=== PATIENT | male | born 1980 | race Caucasian/White ===

== ENCOUNTER 2020-03-22 16:39 | Outpatient (CLI) | payer BC, SELFPAY ==
--- NOTE | ~2020-03-22 | XR_ITS ---
XR knee RT 2V 03/22/2020 17:11 Indication: Right knee pain Procedure: 2 views of the right knee Comparison: No prior studies for comparison. Findings: There is right total knee arthroplasty. There is replacement of the distal aspect of the fe mur. There is lucency surrounding the tibial component of the knee arthroplasty, suspicious for loose chris. There are surgical changes in the femoral region medially. 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 No acute fractures identified. Impression: 1: No acute fracture. 2: Right total knee arthroplasty with partial replacement of the distal femur. Periprosthetic lucency in the proximal tibia, suspicious for loosening. Reviewed, dictated and finalized at location A. RETTE FILTER INSPECTOR Impression: 1: No acute fracture. 2: Right total knee arthroplasty with partial replacement of the distal femur. Periprosthetic lucency in the proximal tibia, suspicious for loosening.
== END 2020-03-22 16:40 ==
PROVIDERS: Visit Provider Pain Medicine Interventional Pain Medicine
DX: M79.2 Neuralgia and neuritis, unspecified (principal); M25.561 Pain in right knee; C92 Myeloid leukemia; G89.4 Chronic pain syndrome; M79.604 Pain in right leg; Z79.891 Long term (current) use of opiate analgesic
CPT/HCPCS: 73560

== ENCOUNTER 2021-07-17 15:51 | Outpatient (CLI) | payer BC, SELFPAY ==
--- NOTE | ~2021-07-17 | XR_ITS ---
XR hip RT min 2V DATE: 07/17/2021 16:23 INDICATION: Right hip pain TECHNIQUE: AP and lateral views of right hip and femur COMPARISON: 03/2020 right knee FINDINGS: Distal femur prosthesis and right knee arthroplasty are again noted. No fracture or dislocation, avascular necrosis or bone destruction is noted at the right hip. IMPRESSION: Right distal femoral replacement and right knee arthroplasty Reviewed, dictated and finalized at location A.
--- NOTE | ~2021-07-17 | XR_ITS ---
EXAMINATION: XR lumbar spine 2-3V DATE: 07/17/2021 16:23 INDICATION: Lumbar radiculopathy TECHNIQUE: Anteroposterior and lateral views of the lumbar spine, and cone-down lateral view of the l umbosacral junction were obtained. COMPARISON: None. FINDINGS: There are 3 mm of retrolisthesis of L5 on S1. There is mild loss of intervertebral disc spa ce height at L5-S1. Bone alignment is otherwise normal. The vertebral body heights are maintained. 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 IMPRESSION: 1. Mild lumbar spondylosis at L5-S1. Reviewed, dictated and finalized at location F.
== END 2021-07-17 15:52 ==
DX: M47.26 Other spondylosis with radiculopathy, lumbar region (principal); M25.551 Pain in right hip; C92 Myeloid leukemia; G89.4 Chronic pain syndrome; M79.2 Neuralgia and neuritis, unspecified; M79.604 Pain in right leg; M79.606 Pain in leg, unspecified; Z79.891 Long term (current) use of opiate analgesic
CPT/HCPCS: 72100; 73502

== ENCOUNTER 2023-01-23 09:25 | Outpatient (CLI) | payer BC, SELFPAY ==
--- NOTE | ~2023-01-23 | XR_ITS ---
Left Knee Technique: AP and lateral views were obtained. Clinical History: Pain Findings: No fracture or dislocation is seen. Osseous alignment is anatomic. Joint spaces are preserv ed without degenerative or erosive change. Soft tissues are unremarkable. No joint effusion is seen. Impression: Unremarkable left knee radiographs. Reviewed, dictated and finalized at [facility]. RINARIAN ASSISTANT Impression: Unremarkable left knee radiographs.
--- NOTE | ~2023-01-23 | XR_ITS ---
Right Knee Technique: AP and lateral views were obtained. Clinical History: Pain Findings: No fracture or dislocation is seen. There is extensive knee arthroplasty hardware present, with replacement of the distal third/half of the right femur. Soft tissues are unremarkable. No joint effusion is seen. Impression: No acute abnormality seen. Extensive orthopedic hardware, as above. Reviewed, dictated and finalized at location . BALL INSPECTOR Impression: No acute abnormality seen. Extensive orthopedic hardware, as above.
--- NOTE | ~2023-01-23 | XR_ITS ---
AP and lateral views of the bilateral hips Clinical history: Pain Findings: No acute fracture or dislocation is seen. Osseous alignment is anatomic. Bilateral hip and SI joint spaces are preserved. There is partially imaged orthopedic hardware at the mid to distal fem oral shaft with surrounding sclerosis or cement, unchanged from prior exam. Soft tissues are unremark able. Impression: No acute abnormality. Stable appearance of orthopedic hardware at the mid to distal right femoral shaft. Correlate with pita gical history. Reviewed, dictated and finalized at location M. RETE ANALYST Impression: No acute abnormality. Stable appearance of orthopedic hardware at the mid to distal right femoral sha ft. Correlate with surgical history.
--- NOTE | ~2023-01-23 | XR_ITS ---
XR lumbar spine 2-3V 01/23/2023 10:36 Indication: Radiculopathy Procedure: 3 views lumbar spine Comparison: 07/17/2021 Findings: Vertebral body heights are maintained. No fracture or traumatic malalignment. No evidence f or spondylolisthesis there is mild disc narrowing at L4-5. There is facet hypertrophy at L5-S1. Impression: 1: Mild lumbar spondylosis. Reviewed, dictated and finalized at location B. NEERING LIBRARIAN Impression: 1: Mild lumbar spondylosis.
== END 2023-01-23 09:26 ==
DX: M25.551 Pain in right hip (principal); M25.552 Pain in left hip; M25.562 Pain in left knee; M25.561 Pain in right knee; M47.896 Other spondylosis, lumbar region
CPT/HCPCS: 72100; 73521; 73560

== ENCOUNTER 2024-06-14 16:31 | Outpatient (CLI) | payer BC, SELFPAY ==
--- NOTE | ~2024-06-14 | XR_ITS ---
Right Knee Technique: AP, lateral, and sunrise views were obtained. Clinical History: Pain COMPARISON: 03/22/2020 Findings: No fracture or dislocation is seen. Knee arthroplasty and replacement of the distal third o f the femur unchanged from prior exam. Stable scattered surgical clips. Soft stable resection of the distal fibula. No joint effusion is seen. Impression: No acute abnormality. Stable extensive postoperative changes and orthopedic hardware at the knee and distal femur, as above. Reviewed, dictated and finalized at location M. Impression: No acute abnormality. Stable extensive postoperative changes and orthopedic april dware at the knee and distal femur, as above.
--- NOTE | ~2024-06-14 | XR_ITS ---
Lumbosacral Spine: AP and lateral views Clinical History: Pain Findings: The normal lordotic curve is maintained. The vertebral bodies and posterior elements are i ntact. The intervertebral disc spaces are preserved. There is mild to moderate facet arthropathy fro m L4 through S1. The sacroiliac joints are normally outlined. Impression: Facet arthropathy lower lumbar spine, as above. Reviewed, dictated and finalized at location M. Impression: Facet arthropathy lower lumbar spine, as above.
== END 2024-06-14 16:32 | disposition home or self-care (01) ==
LOC: MICIMG 16:34
PROVIDERS: Visit Provider Pain Medicine Interventional Pain Medicine
DX: M25.561 Pain in right knee (principal); M54.16 Radiculopathy, lumbar region; M79.604 Pain in right leg; C92 Myeloid leukemia
CPT/HCPCS: 72100; 73564